=== PATIENT | female | born 1960 | race Caucasian/White ===

== ENCOUNTER → 2022-01-25 | Outpatient (CLI) | payer OTHER ==
--- NOTE | 2022-01-25 10:44 | RAD ---
EXAM: Ultrasound-guided core biopsy left breast. Post clip placement mammogram of the left breast. HISTORY: Hypoechoic left breast mass. COMPARISON: Mammogram 01/08/2022, ultrasound 01/14/2022. TECHNIQUE AND FINDINGS: The risks of the procedure were discussed and written and verbal consent was obtained. Sonographic evaluation of the left breast was performed, demonstrating the lesion of concer n. The lesion of concern is a hypoechoic mass in the 8:00 radial 7 cm in the with central echogenic f oci. The skin overlying the lesion was prepped and draped using sterile technique. Local anesthesia was p rovided with 1% lidocaine. A small skin incision was made and multiple 14-gauge core biopsies were ob tained from the lesion of concern. Subsequently, a biopsy clip was advance to the site of biopsy. Full-field digital mammographic views of the left breast demonstrate the clip in expected position, with surrounding density consistent wit h immediate post-biopsy change. Compression was applied to the biopsy site until there was no evidence of bleeding. The tissue fragm ents were placed into a 10% formalin solution and sent to pathology for histologic analysis. The chao ent tolerated the procedure without immediate complication and was discharged in stable condition. IMPRESSION: Successful ultrasound guided biopsy of left breast hypoechoic mass and post-biopsy clip placement. Pa thology is pending. Please refer to the separate report submitted by the Pathology Department for latricia smalls. Electronically signed by: Riley De Guzman MD (01/25/2022 10:41 AM) [id number]
--- NOTE | 2022-01-26 17:07 | PATHOLOGY ---
[facility] Accession Number: [id number] . 01 Material submitted: . breast - LEFT BREAST MASS 8 O'CLOCK 7CM FN .48CM. Modifiers: left, 8:00, 7CM FN . 01 Clinical history: . LEFT BR MASS LEFT BREAST BIOPSY OBTAINED: 9:07 FORMALIN: 9:08 . 02 Diagnosis: Fibroadipose tissue, left breast mass 8:00 7 cm from nipple needle biopsies: - Segments of benign fibroadipose and fatty breast tissue identified showing no significant pathologic abnormalities. LBQ 01/26/2022 1034 Local . 02 Comment: Sections of the left breast mass at 8:00 needle biopsy reveal segments of predominantly fatty, benign fibroadipose and fatty breast tissue. In level 1 of block A3, there is a small area of fibrous stroma containing a few small benign ducts. There is no circumscribed mass with coarse calcification identified within the needle biopsy. There is no atypia or evidence of malignancy. (JPM/db; 01/26/2022) . 02 Electronically signed: . Juanito Estes MD, Pathologist NPI- [id number] . 01 Gross description: . The specimen is received in formalin, labeled "Yanique Villar, left breast". The source is additionally listed on the requisition as "left breast mass 8:00 7 cm FN". Received are 3 needle cores of fibrofatty tissue measuring 1.4 x 0.6 x 0.2 cm in aggregate dimensions. The specimen is submitted entirely in cassettes A1-A3. The specimen is collected at 0907 and placed into formalin at 0908 on 01/25/2022. The specimen is removed from formalin at 2240 on 01/25/2022. The total formalin fixation time is 13 hours and 32 minutes. ([facility]; 01/25/2022) NRI/NRI 01/25/2022 2010 Local . 02 Pathologist provided ICD-10: N63.20 . 02 CPT . 404647 Specimen Comment: A courtesy copy of this report has been sent to [phone], [phone]- Specimen Comment: [id number] Specimen Comment: Report sent to / DR BLEVINS Performed at: [facility] [address], [place] [id number] MD John Ernandez MD Phone: [phone] Performed at: 02 [facility] [address] [place], [place] [id number] MD Juanito Estes MD Phone: [phone]
== END | disposition home or self-care (01) ==
LOC: US 08:14
PROVIDERS: ATTEND Physician Assistant
DX: N63.24 Unspecified lump in the left breast, lower inner quadrant (principal)
CPT/HCPCS: 19083; 77065; A4648; C1819